=== PATIENT | female | born 1940 | race Caucasian/White ===

== ENCOUNTER 2017-08-24 19:35 | Emergency (ER) | payer OTHER ==
[~2017-08-24] VITALS: Ht 157.5 cm; Wt 102.1 kg
[~2017-08-24 19:35] MED LIST: ACET500 PO; ASPI81CH PO; BENTYL10 MG PO; CARV6.25 PO; DIAZ5 PO; DOCU100 PO; DONE5 PO; GABA300 PO; Hair, Skin & N1 EACH PO; Keflex500 MG PO; LOSA50 PO; LOVA40; MELO7.5 PO; OXYB5 PO; Prilosec Otc20 MG; VENL25 PO
[2017-08-24] MEDS ORDERED: MELO7.5 PO (19:45)
[2017-08-24 20:23] LABS: Base Excess Venous -4.1 mmol/L; Bicarbonate Venous 21.7 mmol/L (24.0-30.0); PCO2 Venous 33.3 mmHg (38-42); PO2 Venous 173 mmHg (38-42)
[2017-08-24 20:54] LABS: Alanine Aminotransfer (ALT/SGP 19 U/L (12-78); Albumin, Blood 3.5 g/dL (3.4-5.0); Albumin/Globulin Ratio 1.1 (0.8-1.8); Alk Phos 92 U/L (50-136); Anion Gap 10 mmol/L (6-16); Aspartate Aminotrans (AST/SGOT 21 U/L (12-37); Bilirubin, Total 0.3 mg/dL (0.1-1.0); Blood Urea Nitrogen 19 mg/dL (8-24); Bun/Creatinine Ratio 17.1 (12.0-20.0); CO2, Blood 22 mmol/L (21-32); Calcium, Blood 8.4 mg/dL (8.5-10.1); Chloride, Blood 109 mmol/L (98-108); Creatinine, Blood 1.11 mg/dL (0.40-1.00); Globulin, Blood 3.1 g/dL (2.2-4.0); Glomerular Filtration Rate 51 (60-); Glucose, Blood 158 mg/dL (70-99); Potassium, Blood 3.7 mmol/L (3.5-5.5); Sodium, Blood 141 mmol/L (136-145); Total Protein, Blood 6.6 g/dL (6.4-8.2); Troponin I <0.015 ng/mL (0.000-0.040)
[2017-08-24 21:45] LABS: BASOPHILS ABSOLUTE AUTO 0.06 K/mm3 (0.00-0.23); BASOPHILS PERCENT AUTO 1 % (0-2); EOSINOPHILS ABSOLUTE AUTO 0.11 K/mm3 (0.00-0.68); EOSINOPHILS PERCENT AUTO 1 % (0-6); Hematocrit 35.4 % (33.0-51.0); Hemoglobin 11.8 g/dL (11.5-16.0); IMMATURE GRAN ABSOLUTE AUTO 0.03 K/mm3 (0.00-0.10); IMMATURE GRAN PERCENT AUTO 0 % (0-1); LYMPHOCYTES ABSOLUTE AUTO 1.43 K/mm3 (0.84-5.20); LYMPHOCYTES PERCENT AUTO 17 % (21-46); MONOCYTES ABSOLUTE AUTO 0.67 K/mm3 (0.16-1.47); MONOCYTES PERCENT AUTO 8 % (4-13); Mean Corpuscular HGB 31.6 pg (26.0-34.0); Mean Corpuscular HGB Conc 33.3 g/dL (31.5-36.5); Mean Corpuscular Volume 95 fL (80-100); Mean Platelet Volume 9.5 fL (9.1-12.4); NEUTROPHILS ABSOLUTE AUTO 6.31 K/mm3 (1.96-9.15); NEUTROPHILS PERCENT AUTO 73 % (41-73); Platelet Count 186 K/mm3 (150-400); RDW Coefficient Variation 13.1 % (11.7-14.2); RDW Standard Deviation 45.4 fL (35.1-46.3); Red Blood Cell Count 3.74 M/mm3 (3.80-5.20); White Blood Cell Count 8.61 K/mm3 (4.00-11.30)
[2017-08-24] MEDS ORDERED: Zofran8 MG PO (22:07)
[2017-08-24 22:10] LABS: International Normalized Ratio 1.05; Prothrombin Time Results 10.8 Sec (9.7-11.5)
== END 2017-08-24 22:29 | disposition home or self-care (01) ==
LOC: ER 19:35
PROVIDERS: Emergency Medicine
DX: R11.10 Vomiting, unspecified (principal); I48.91 Unspecified atrial fibrillation; I25.10 Atherosclerotic heart disease of native coronary artery without angina pectoris; I25.2 Old myocardial infarction; E11.9 Type 2 diabetes mellitus without complications; I10 Essential (primary) hypertension; E78.5 Hyperlipidemia, unspecified; J45.909 Unspecified asthma, uncomplicated; Z88.5 Allergy status to narcotic agent; Z88.1 Allergy status to other antibiotic agents; Z79.899 Other long term (current) drug therapy; Z79.82 Long term (current) use of aspirin
CPT/HCPCS: 36415; 71046; 80053; 82803; 83690; 83880; 84443; 84484; 85025; 85610; 93005; 93010; 96361; 96374; 99284-25; J2405; J7030

== ENCOUNTER → 2018-02-25 | Outpatient (CLI) | payer OTHER ==
[~2018-02-25] MED LIST changes: +Zofran8 MG PO
== END | disposition home or self-care (01) ==
LOC: LAB SHORT 15:29 → LAB EV 15:29
DX: M62.81 Muscle weakness (generalized) (principal); R82.998 Other abnormal findings in urine
CPT/HCPCS: 87077; 87086; 87186

== ENCOUNTER → 2018-02-25 | Outpatient (CLI) | payer OTHER ==
[2018-02-25 14:30] LABS: BASOPHILS ABSOLUTE AUTO 0.05 K/mm3 (0.00-0.23); BASOPHILS PERCENT AUTO 1 % (0-2); EOSINOPHILS ABSOLUTE AUTO 0.19 K/mm3 (0.00-0.68); EOSINOPHILS PERCENT AUTO 2 % (0-6); Hematocrit 34.9 % (33.0-51.0); Hemoglobin 11.7 g/dL (11.5-16.0); IMMATURE GRAN ABSOLUTE AUTO 0.05 K/mm3 (0.00-0.10); IMMATURE GRAN PERCENT AUTO 1 % (0-1); LYMPHOCYTES ABSOLUTE AUTO 1.75 K/mm3 (0.84-5.20); LYMPHOCYTES PERCENT AUTO 18 % (21-46); MONOCYTES ABSOLUTE AUTO 0.94 K/mm3 (0.16-1.47); MONOCYTES PERCENT AUTO 10 % (4-13); Mean Corpuscular HGB Conc 33.5 g/dL (31.5-36.5); Mean Corpuscular Volume 93 fL (80-100); Mean Platelet Volume 9.6 fL (9.1-12.4); NEUTROPHILS ABSOLUTE AUTO 6.75 K/mm3 (1.96-9.15); NEUTROPHILS PERCENT AUTO 69 % (41-73); Platelet Count 269 K/mm3 (150-400); RDW Coefficient Variation 12.9 % (11.7-14.2); RDW Standard Deviation 43.7 fL (35.1-46.3); Red Blood Cell Count 3.77 M/mm3 (3.80-5.20); White Blood Cell Count 9.73 K/mm3 (4.00-11.30)
[2018-02-25 14:40] LABS: Alanine Aminotransfer (ALT/SGP 19 U/L (12-78); Albumin, Blood 3.3 g/dL (3.4-5.0); Albumin/Globulin Ratio 0.8 (0.8-1.8); Alk Phos 106 U/L (40-126); Anion Gap 10 mmol/L (6-16); Aspartate Aminotrans (AST/SGOT 15 U/L (12-37); Bilirubin, Total 0.4 mg/dL (0.1-1.0); Blood Urea Nitrogen 14 mg/dL (8-24); Bun/Creatinine Ratio 17.7 (12.0-20.0); CO2, Blood 26 mmol/L (21-32); Calcium, Blood 9.2 mg/dL (8.5-10.1); Chloride, Blood 101 mmol/L (98-108); Creatinine, Blood 0.79 mg/dL (0.40-1.00); Globulin, Blood 4.1 g/dL (2.2-4.0); Glomerular Filtration Rate >60 (60-); Glucose, Blood 160 mg/dL (70-99); Potassium, Blood 3.8 mmol/L (3.5-5.5); Sodium, Blood 137 mmol/L (136-145); Total Protein, Blood 7.4 g/dL (6.4-8.2)
== END | disposition home or self-care (01) ==
LOC: LAB EV 14:24 → LAB SHORT 14:24
PROVIDERS: Internal Medicine
DX: M25.561 Pain in right knee (principal); M62.81 Muscle weakness (generalized); R60.0 Localized edema
CPT/HCPCS: 80053; 85025; 85379; 85651

== ENCOUNTER 2018-08-09 16:30 | Emergency (ER) | payer OTHER ==
[~2018-08-09] VITALS: Ht 157.5 cm; Wt 102.1 kg
[2018-08-09 17:54] LABS: BASOPHILS ABSOLUTE AUTO 0.05 K/mm3 (0.00-0.23); BASOPHILS PERCENT AUTO 1 % (0-2); EOSINOPHILS PERCENT AUTO 3 % (0-6); Hematocrit 35.8 % (33.0-51.0); Hemoglobin 11.6 g/dL (11.5-16.0); IMMATURE GRAN ABSOLUTE AUTO 0.02 K/mm3 (0.00-0.10); IMMATURE GRAN PERCENT AUTO 0 % (0-1); LYMPHOCYTES ABSOLUTE AUTO 2.02 K/mm3 (0.84-5.20); LYMPHOCYTES PERCENT AUTO 33 % (21-46); MONOCYTES ABSOLUTE AUTO 0.51 K/mm3 (0.16-1.47); MONOCYTES PERCENT AUTO 8 % (4-13); Mean Corpuscular HGB 30.9 pg (26.0-34.0); Mean Corpuscular HGB Conc 32.4 g/dL (31.5-36.5); Mean Corpuscular Volume 96 fL (80-100); Mean Platelet Volume 9.4 fL (9.1-12.4); NEUTROPHILS PERCENT AUTO 54 % (41-73); Platelet Count 194 K/mm3 (150-400); RDW Standard Deviation 45.6 fL (35.1-46.3); Red Blood Cell Count 3.75 M/mm3 (3.80-5.20)
[2018-08-09 18:11] LABS: Alanine Aminotransfer (ALT/SGP 21 U/L (12-78); Albumin, Blood 3.7 g/dL (3.4-5.0); Albumin/Globulin Ratio 1.1 (0.8-1.8); Alk Phos 104 U/L (50-136); Anion Gap 4 mmol/L (6-16); Aspartate Aminotrans (AST/SGOT 16 U/L (12-37); Bilirubin, Total 0.3 mg/dL (0.1-1.0); Blood Urea Nitrogen 17 mg/dL (8-24); Bun/Creatinine Ratio 25.3 (12.0-20.0); CO2, Blood 30 mmol/L (21-32); Calcium, Blood 9.2 mg/dL (8.5-10.1); Chloride, Blood 106 mmol/L (98-108); Creatinine, Blood 0.67 mg/dL (0.40-1.00); Globulin, Blood 3.4 g/dL (2.2-4.0); Glomerular Filtration Rate >60 (60-); Glucose, Blood 84 mg/dL (70-99); Potassium, Blood 4.2 mmol/L (3.5-5.5); Sodium, Blood 140 mmol/L (136-145); Total Protein, Blood 7.1 g/dL (6.4-8.2)
[2018-08-09 18:19] LABS: Source, Urine Clean Catch
[2018-08-09 18:22] LABS: Bilirubin, Urine Neg (Neg); Blood, Urine 1+ (Neg); Glucose Qualitative, Urine Neg (Neg); Ketones, Urine Neg (Neg); Leukocyte Esterase, Urine 3+ (Neg); Nitrite, Urine Neg (Neg); Protein, Urine Neg (Neg); Urobilinogen, Urine NORM (Normal)
[2018-08-09 18:28] LABS: Appearance, Urine Hazy (Clear); Color, Urine Yellow (P-Yellow)
[2018-08-09 18:31] LABS: Bacteria Many /hpf; Red Blood Cells, Urine Rare /hpf (0-2); White Blood Cells, Urine 50-100 /hpf (0-5)
[2018-08-09 18:32] LABS: Squamous Epithelial Cells Few /hpf (Few)
[2018-08-09] MEDS ORDERED: Cipro500 MG PO (18:51)
== END 2018-08-09 19:10 | disposition home or self-care (01) ==
LOC: ER 16:30
PROVIDERS: Physician Assistant
DX: S09.90XA Unspecified injury of head, initial encounter (principal); R42 Dizziness and giddiness; N39.0 Urinary tract infection, site not specified; W19.XXXA Unspecified fall, initial encounter; I10 Essential (primary) hypertension; J45.909 Unspecified asthma, uncomplicated; E78.5 Hyperlipidemia, unspecified; I25.2 Old myocardial infarction
CPT/HCPCS: 36415; 70450; 71046; 73030; 80053; 81001; 85025; 87077; 87086; 87186; 93005; 93010; 99284-25

== ENCOUNTER → 2019-01-01 | Outpatient (CLI) | payer OTHER ==
[~2019-01-01] MED LIST changes: +Cipro500 MG PO
== END | disposition home or self-care (01) ==
LOC: LAB SHORT 13:44 → LAB EV 13:44
DX: L08.9 Local infection of the skin and subcutaneous tissue, unspecified (principal)
CPT/HCPCS: 87070; 87075; 87205

== ENCOUNTER → 2019-04-14 | Outpatient (CLI) | payer OTHER ==
[2019-04-14 11:46] LABS: BASOPHILS ABSOLUTE AUTO 0.07 K/mm3 (0.00-0.23); BASOPHILS PERCENT AUTO 1 % (0-2); EOSINOPHILS ABSOLUTE AUTO 0.28 K/mm3 (0.00-0.68); EOSINOPHILS PERCENT AUTO 4 % (0-6); Hematocrit 38.8 % (33.0-51.0); IMMATURE GRAN ABSOLUTE AUTO 0.04 K/mm3 (0.00-0.10); IMMATURE GRAN PERCENT AUTO 1 % (0-1); LYMPHOCYTES ABSOLUTE AUTO 1.45 K/mm3 (0.84-5.20); LYMPHOCYTES PERCENT AUTO 19 % (21-46); MONOCYTES ABSOLUTE AUTO 1.03 K/mm3 (0.16-1.47); MONOCYTES PERCENT AUTO 13 % (4-13); Mean Corpuscular HGB 31.4 pg (26.0-34.0); Mean Corpuscular HGB Conc 33.5 g/dL (31.5-36.5); Mean Corpuscular Volume 94 fL (80-100); Mean Platelet Volume 9.5 fL (9.1-12.4); NEUTROPHILS ABSOLUTE AUTO 4.86 K/mm3 (1.96-9.15); NEUTROPHILS PERCENT AUTO 63 % (41-73); Platelet Count 221 K/mm3 (150-400); RDW Coefficient Variation 12.9 % (11.7-14.2); Red Blood Cell Count 4.14 M/mm3 (3.80-5.20); White Blood Cell Count 7.73 K/mm3 (4.00-11.30)
[2019-04-14 11:55] LABS: Anion Gap 11 mmol/L (6-16); Blood Urea Nitrogen 17 mg/dL (8-24); Bun/Creatinine Ratio 18.9 (12.0-20.0); CO2, Blood 23 mmol/L (21-32); Calcium, Blood 9.1 mg/dL (8.5-10.1); Chloride, Blood 102 mmol/L (98-108); Glomerular Filtration Rate >60 (60-); Glucose, Blood 163 mg/dL (70-99); Potassium, Blood 3.7 mmol/L (3.5-5.5); Sodium, Blood 136 mmol/L (136-145)
[2019-04-14 11:58] LABS: Troponin I <0.017 ng/mL (0.000-0.040)
== END | disposition home or self-care (01) ==
LOC: LAB SHORT 11:37 → LAB EV 11:37
PROVIDERS: Physician Assistant Surgical
DX: R07.9 Chest pain, unspecified (principal)
CPT/HCPCS: 80048; 83880; 84484; 85025

== ENCOUNTER 2021-07-14 20:32 | Observation (INO) | payer OTHER ==
[~2021-07-14] VITALS: Ht 157.5 cm; Wt 101.0 kg
[~2021-07-14 20:32] MED LIST changes: +OMEP20ER PO; -Prilosec Otc20 MG
[2021-07-14 23:37] LABS: BASOPHILS ABSOLUTE AUTO 0.08 K/mm3 (0.00-0.23); BASOPHILS PERCENT AUTO 1 % (0-2); EOSINOPHILS ABSOLUTE AUTO 0.06 K/mm3 (0.00-0.68); EOSINOPHILS PERCENT AUTO 1 % (0-6); Hematocrit 39.1 % (33.0-51.0); Hemoglobin 13.2 g/dL (11.5-16.0); IMMATURE GRAN ABSOLUTE AUTO 0.04 K/mm3 (0.00-0.10); IMMATURE GRAN PERCENT AUTO 0 % (0-1); LYMPHOCYTES PERCENT AUTO 15 % (21-46); MONOCYTES ABSOLUTE AUTO 1.17 K/mm3 (0.16-1.47); MONOCYTES PERCENT AUTO 13 % (4-13); Mean Corpuscular HGB 31.5 pg (26.0-34.0); Mean Corpuscular HGB Conc 33.8 g/dL (31.5-36.5); Mean Corpuscular Volume 93 fL (80-100); Mean Platelet Volume 9.3 fL (9.1-12.4); NEUTROPHILS ABSOLUTE AUTO 6.35 K/mm3 (1.96-9.15); NEUTROPHILS PERCENT AUTO 70 % (41-73); Platelet Count 213 K/mm3 (150-400); RDW Standard Deviation 44.8 fL (35.1-46.3); Red Blood Cell Count 4.19 M/mm3 (3.80-5.20)
[2021-07-14 23:57] LABS: Albumin, Blood 3.6 g/dL (3.4-5.0); Albumin/Globulin Ratio 0.9 (0.8-1.8); Bilirubin, Total 0.5 mg/dL (0.1-1.0); Bun/Creatinine Ratio 25.4 (12.0-20.0); Creatinine, Blood 0.67 mg/dL (0.40-1.00); Globulin, Blood 4.2 g/dL (2.2-4.0); Potassium, Blood 3.9 mmol/L (3.5-5.5); Total Protein, Blood 7.8 g/dL (6.4-8.2)
[2021-07-15] MEDS ORDERED: POTA10T PO (04:00)
[2021-07-15] MEDS ORDERED: FURO40 PO (04:01)
[2021-07-15] MEDS ORDERED: MEMA10 PO (04:01)
[2021-07-15] MEDS ORDERED: PROAIR DIGIHAL90 MCG INH (04:04)
[2021-07-15] MEDS ORDERED: CHOLESTYRAMI239.4 G1 PO (04:05)
[2021-07-15] MEDS ORDERED: QVAR REDIHALE10.6 G3 INH (04:06)
[2021-07-15] MEDS ORDERED: MYRBETRIQ25 MG PO (04:12)
[2021-07-15] MEDS ORDERED: THERA-D2000 UNIT PO (04:14)
[2021-07-15] MEDS ORDERED: Acerola C500 MG PO (04:15)
[2021-07-15 04:21] LABS: BASOPHILS ABSOLUTE AUTO 0.06 K/mm3 (0.00-0.23); BASOPHILS PERCENT AUTO 1 % (0-2); EOSINOPHILS PERCENT AUTO 1 % (0-6); Hematocrit 38.7 % (33.0-51.0); Hemoglobin 12.8 g/dL (11.5-16.0); IMMATURE GRAN ABSOLUTE AUTO 0.04 K/mm3 (0.00-0.10); IMMATURE GRAN PERCENT AUTO 0 % (0-1); LYMPHOCYTES ABSOLUTE AUTO 0.91 K/mm3 (0.84-5.20); LYMPHOCYTES PERCENT AUTO 10 % (21-46); MONOCYTES ABSOLUTE AUTO 0.75 K/mm3 (0.16-1.47); MONOCYTES PERCENT AUTO 8 % (4-13); Mean Corpuscular HGB 31.1 pg (26.0-34.0); Mean Corpuscular HGB Conc 33.1 g/dL (31.5-36.5); Mean Corpuscular Volume 94 fL (80-100); Mean Platelet Volume 9.3 fL (9.1-12.4); NEUTROPHILS ABSOLUTE AUTO 7.41 K/mm3 (1.96-9.15); NEUTROPHILS PERCENT AUTO 80 % (41-73); Platelet Count 219 K/mm3 (150-400); RDW Coefficient Variation 13.2 % (11.7-14.2); RDW Standard Deviation 45.3 fL (35.1-46.3); Red Blood Cell Count 4.11 M/mm3 (3.80-5.20); White Blood Cell Count 9.27 K/mm3 (4.00-11.30)
[2021-07-15 04:39] LABS: Albumin, Blood 3.6 g/dL (3.4-5.0); Albumin/Globulin Ratio 0.9 (0.8-1.8); Bilirubin, Total 0.5 mg/dL (0.1-1.0); Bun/Creatinine Ratio 25.1 (12.0-20.0); Calcium, Blood 9.4 mg/dL (8.5-10.1); Creatinine, Blood 0.64 mg/dL (0.40-1.00); Globulin, Blood 4.1 g/dL (2.2-4.0); Total Protein, Blood 7.7 g/dL (6.4-8.2)
--- NOTE | 2021-07-15 06:37 | NUR ---
SHIFT SUMMARY: PATIENT ADMITTED FROM ED WITH COVID, DYSPNEA, INCREASED WEAKNESS AND CONFUSION PER DAUGHTER. PATIENT IS PLEASANT ABLE TO ANSWER ALL ORIENTATION QUESTIONS AND PARTICIPATE IN ADMISSION PROCESS TREVON. REQUIRING 2L VIA NC TO MAINTAIN SAT > 92%. TELE = AFIB. TRACE EDEMA AND REDENSS TO BLE. PATIENT ENDORSES CHRONIC PAIN HOWEVER DENIES NEED FOR MEDICATION AND REQUEST TO REST. PLAN OF CARE EXPLAINED TO PATIENT AND DAUGHTER ALL QUESTIONS AND CONCERNS ADDRESSED. COMPLIANT WITH MEDICATION ADMINISTRATION.
--- NOTE | 2021-07-15 17:26 | NUR ---
PT IS A/OX3, PLEASANT AND COOPERATIVE. THE PT IS UP WITH MINIMAL ASSIST. THE PT WAS UP IN THE CHAIR FOR ALL MEALS. THE PT IS ON O2 VIA NC AT 1L/MIN AT THIS TIME, TITRATED DOWN FROM 3L/MIN O2 SATS > 92% AT REST. PT WAS MEDICATED FOR PAIN X1 THIS AM WITH TYLENOL PER HER REQUEST. VS WNL. CONTINUOS BIOX ON. CALL LIGHT IN REACH. THE PT IS UP IN THE CHAIR AT THIS TIME
--- NOTE | 2021-07-16 04:07 | NUR ---
SHIFT SUMMARY NO ACUTE CHANGES. PT CONT TO DENY SOB. ON 1L VIA NC TO KEEP SATS >90%. CONT BIOX IN PLACE. UP WITH 1 ASSIST TO BSC.
[2021-07-16] MEDS ORDERED: AZIT500 PO (09:55)
[2021-07-16] MEDS ORDERED: METO25ER PO (09:56)
--- NOTE | 2021-07-16 14:05 | NUR ---
DISCHARGE INSTRUCTIONS, FOLLOW UP, AND MEDICATIONS GIVEN TO PATIENT. PATIENT VOICED COMPLETE UNDERSTANDING AND HAS NO QUESTIONS AT THIS TIME. IV REMOVED WITH CATHETER TIP INTACT. FAMILY TO BRING CLOTHES FOR PT. WILL CONTINUE TO MONITOR UNTIL PT LEAVES
== END 2021-07-16 15:51 | disposition home health service (06) ==
LOC: ER 20:32 → MEDS 20:33 → ER 07-15 02:53 → MEDS 07-15 02:53
PROVIDERS: Physician Assistant; Student in an Organized Health Care Education/Training Program; ADMIT Internal Medicine
DX: U07.1 COVID-19 (principal); J96.01 Acute respiratory failure with hypoxia; J18.9 Pneumonia, unspecified organism; J45.909 Unspecified asthma, uncomplicated; E78.5 Hyperlipidemia, unspecified; I25.10 Atherosclerotic heart disease of native coronary artery without angina pectoris; I11.0 Hypertensive heart disease with heart failure; I44.7 Left bundle-branch block, unspecified; I25.2 Old myocardial infarction; I50.9 Heart failure, unspecified; I48.20 Chronic atrial fibrillation, unspecified; F03.90 Unspecified dementia, unspecified severity, without behavioral disturbance, psychotic disturbance, mood disturbance, and anxiety; Z66 Do not resuscitate; Z95.5 Presence of coronary angioplasty implant and graft; Z90.49 Acquired absence of other specified parts of digestive tract; Z88.5 Allergy status to narcotic agent; Z88.1 Allergy status to other antibiotic agents; Z79.82 Long term (current) use of aspirin
CPT/HCPCS: 36415; 71045; 80053; 83605; 83880; 84145; 84484; 85025; 92526; 92610; 93005; 93010; 94762; 96374; 96375; 97162; 97530; 99285-25; A9270; J0248; J0696; J1100; J1650; J1940; J7050

== ENCOUNTER 2021-09-30 05:33 | Inpatient (IN) | payer OTHER ==
[~2021-09-30] VITALS: Ht 160 cm; Wt 95.2 kg
[~2021-09-30 05:33] MED LIST changes: +AZIT500 PO; +Acerola C500 MG PO; +CHOLESTYRAMI239.4 G1 PO; +FURO40 PO; +MEMA10 PO; +METO25ER PO; +MYRBETRIQ25 MG PO; +POTA10T PO; +PROAIR DIGIHAL90 MCG INH; +QVAR REDIHALE10.6 G3 INH; +THERA-D2000 UNIT PO
[2021-09-30 09:00] LABS: International Normalized Ratio 1.05
[2021-09-30 09:22] LABS: BASOPHILS ABSOLUTE AUTO 0.09 K/mm3 (0.00-0.23); BASOPHILS PERCENT AUTO 1 % (0-2); EOSINOPHILS ABSOLUTE AUTO 0.14 K/mm3 (0.00-0.68); EOSINOPHILS PERCENT AUTO 1 % (0-6); Hematocrit 35.3 % (33.0-51.0); Hemoglobin 11.2 g/dL (11.5-16.0); IMMATURE GRAN ABSOLUTE AUTO 0.08 K/mm3 (0.00-0.10); IMMATURE GRAN PERCENT AUTO 1 % (0-1); LYMPHOCYTES ABSOLUTE AUTO 1.86 K/mm3 (0.84-5.20); LYMPHOCYTES PERCENT AUTO 13 % (21-46); MONOCYTES PERCENT AUTO 7 % (4-13); Mean Corpuscular HGB 30.5 pg (26.0-34.0); Mean Corpuscular HGB Conc 31.7 g/dL (31.5-36.5); Mean Corpuscular Volume 96 fL (80-100); NEUTROPHILS PERCENT AUTO 78 % (41-73); Platelet Count 242 K/mm3 (150-400); RDW Coefficient Variation 13.7 % (11.7-14.2); RDW Standard Deviation 48.7 fL (35.1-46.3); Red Blood Cell Count 3.67 M/mm3 (3.80-5.20); White Blood Cell Count 14.27 K/mm3 (4.00-11.30)
[2021-09-30 09:22] LABS: Influenza A, PCR NEGATIVE (NEGATIVE); Influenza B, PCR NEGATIVE (NEGATIVE); Resp Syncytial Virus, PCR NEGATIVE (NEGATIVE); SARS-Cov-2 (COVID-19) PCR, MMC NEGATIVE (NEGATIVE)
[2021-09-30 09:42] LABS: Bun/Creatinine Ratio 30.5 (12.0-20.0); Calcium, Blood 9.3 mg/dL (8.5-10.1); Creatinine, Blood 0.62 mg/dL (0.40-1.00); Potassium, Blood 4.2 mmol/L (3.5-5.5)
[2021-09-30 11:15] LABS: Source, Urine Foley catheter
[2021-09-30 11:19] LABS: Bilirubin, Urine Neg (Neg); Blood, Urine 1+ (Neg); Glucose Qualitative, Urine Neg (Neg); Ketones, Urine Neg (Neg); Leukocyte Esterase, Urine 2+ (Neg); Nitrite, Urine Neg (Neg); Protein, Urine Neg (Neg); Urobilinogen, Urine NORM (Normal)
[2021-09-30 11:40] LABS: Appearance, Urine Hazy (Clear); Bacteria Mod /hpf; Color, Urine Yellow (P-Yellow); Squamous Epithelial Cells Rare /hpf (Few); White Blood Cells, Urine 25-50 /hpf (0-5)
[2021-09-30] MEDS ORDERED: Acetaminophen650 M1 PO (16:13)
--- NOTE | 2021-09-30 18:47 | NUR ---
SHIFT SUMMARY SINCE ARRIVAL TO UNIT AROUND 1500, PT HAS BEEN DROWSY BUT AWAKENS EASILY. PLEASANTLY CONFUSED. BED ALARM ON. TELE & DNR WRISTBAND PLACED. [address] TX IN [address] w/ GOOD RELIEF.
[2021-10-01 05:00] LABS: BASOPHILS ABSOLUTE AUTO 0.05 K/mm3 (0.00-0.23); BASOPHILS PERCENT AUTO 1 % (0-2); EOSINOPHILS ABSOLUTE AUTO 0.11 K/mm3 (0.00-0.68); EOSINOPHILS PERCENT AUTO 1 % (0-6); Hemoglobin 10.6 g/dL (11.5-16.0); IMMATURE GRAN ABSOLUTE AUTO 0.05 K/mm3 (0.00-0.10); IMMATURE GRAN PERCENT AUTO 1 % (0-1); LYMPHOCYTES ABSOLUTE AUTO 1.34 K/mm3 (0.84-5.20); LYMPHOCYTES PERCENT AUTO 14 % (21-46); MONOCYTES ABSOLUTE AUTO 1.03 K/mm3 (0.16-1.47); MONOCYTES PERCENT AUTO 11 % (4-13); Mean Corpuscular HGB 30.7 pg (26.0-34.0); Mean Corpuscular HGB Conc 32.1 g/dL (31.5-36.5); Mean Corpuscular Volume 96 fL (80-100); Mean Platelet Volume 9.3 fL (9.1-12.4); NEUTROPHILS ABSOLUTE AUTO 7.27 K/mm3 (1.96-9.15); NEUTROPHILS PERCENT AUTO 74 % (41-73); Platelet Count 221 K/mm3 (150-400); RDW Coefficient Variation 13.7 % (11.7-14.2); Red Blood Cell Count 3.45 M/mm3 (3.80-5.20); White Blood Cell Count 9.85 K/mm3 (4.00-11.30)
--- NOTE | 2021-10-01 05:11 | NUR ---
SHIFT SUMMARY A/O X3- BEDREST THROUGHOUT THIS SHIFT. NPO SINCE MIDNIGHT. VITAL SIGNS STABLE. PAIN MANAGED W/ PO AND IV PAIN MEDICATIONS. R LEG REMAINS IN TRACTION. MCLEOD DRAINING TO GRAVITY. NO N/V REPORTED. PLEASANT AND COOPERATIVE W/ CARE. CALL LIGHT IN REACH, WILL CONTINUE TO MONITOR AND REPORT TO ONCOMING RN.
[2021-10-01 05:28] LABS: Albumin, Blood 2.8 g/dL (3.4-5.0); Albumin/Globulin Ratio 0.7 (0.8-1.8); Bilirubin, Total 0.7 mg/dL (0.1-1.0); Bun/Creatinine Ratio 36.8 (12.0-20.0); Calcium, Blood 8.5 mg/dL (8.5-10.1); Creatinine, Blood 0.27 mg/dL (0.40-1.00); Globulin, Blood 3.8 g/dL (2.2-4.0); Potassium, Blood 4.2 mmol/L (3.5-5.5); Total Protein, Blood 6.6 g/dL (6.4-8.2)
--- NOTE | 2021-10-01 09:54 | NUR ---
Spiritual Care Pt. request. Pt. is awake in bed and welcomes my visit. Many family members are present. Pt. verbalized being inactive in her [employer] licha for several years. Daughter is present and rapport is established. Pt. displays evidence on engagement and awareness. Prayed with Pt. and daughter. Pt. and daughter verbalized gratitude for the spirtitual care visit.
--- NOTE | 2021-10-01 13:21 | NUR ---
PT TO DAY SURGERY VIA HOSPITAL BED
--- NOTE | 2021-10-01 13:38 | NUR ---
THE PATIENT WAS BROUGHT TO DAY SURGERY FOR HER PROCEDURE.
--- NOTE | 2021-10-01 16:01 | NUR ---
10/01/21 1601 Andres Granger PT ARRIVED TO OR WITH MCLEOD CATHETER IN PLACE, DRAINING DARK YELLOW URINE.EMPTIED 900ML @ START OF CASE.
--- NOTE | 2021-10-01 23:35 | NUR ---
PT ARRIVED BACK TO THE FLOOR AT APPROX 1915, CURRENTLY ON 7L OXYMIZER TO KEEP SATS ABOVE 90%. PT IS SLEEPING BUT AROUSABLE AND RESPONDS TO VERBAL STIMULI. FAMILY AT BEDSIDE. VITALS TAKEN. MCLEOD DRAINING TO GRAVITY. WILL CONTINUE TO MONITOR.
--- NOTE | 2021-10-02 05:42 | NUR ---
SHIFT SUMMARY A/O TO SELF AND OTHERS AT TIMES. BEDREST THROUGHOUT SHIFT. POD1 R FEMUR PINNING-AQUACELS X3 C/D/I. VITAL SIGNS STABLE. PAIN MANAGED W/ IV PAIN MEDICATIONS, DURING PROCEDURE. SINCE ARRIVAL TO THE FLOOR PT 02 SATURATIONS REMAINES ABOVE 90% W/ 3.5L. WILL CONTINUE TO MONITOR AND REPORT TO ONCOMING RN.
[2021-10-02 08:24] LABS: BASOPHILS ABSOLUTE AUTO 0.04 K/mm3 (0.00-0.23); BASOPHILS PERCENT AUTO 0 % (0-2); EOSINOPHILS ABSOLUTE AUTO 0.01 K/mm3 (0.00-0.68); EOSINOPHILS PERCENT AUTO 0 % (0-6); Hematocrit 28.5 % (33.0-51.0); Hemoglobin 8.9 g/dL (11.5-16.0); IMMATURE GRAN ABSOLUTE AUTO 0.07 K/mm3 (0.00-0.10); IMMATURE GRAN PERCENT AUTO 1 % (0-1); LYMPHOCYTES ABSOLUTE AUTO 1.36 K/mm3 (0.84-5.20); LYMPHOCYTES PERCENT AUTO 11 % (21-46); MONOCYTES ABSOLUTE AUTO 1.64 K/mm3 (0.16-1.47); MONOCYTES PERCENT AUTO 13 % (4-13); Mean Corpuscular HGB 30.4 pg (26.0-34.0); Mean Corpuscular HGB Conc 31.2 g/dL (31.5-36.5); Mean Corpuscular Volume 97 fL (80-100); Mean Platelet Volume 9.7 fL (9.1-12.4); NEUTROPHILS PERCENT AUTO 76 % (41-73); Platelet Count 195 K/mm3 (150-400); RDW Coefficient Variation 13.5 % (11.7-14.2); RDW Standard Deviation 48.6 fL (35.1-46.3); Red Blood Cell Count 2.93 M/mm3 (3.80-5.20); White Blood Cell Count 12.82 K/mm3 (4.00-11.30)
[2021-10-02 08:26] LABS: Albumin, Blood 2.4 g/dL (3.4-5.0); Albumin/Globulin Ratio 0.7 (0.8-1.8); Bilirubin, Total 0.7 mg/dL (0.1-1.0); Calcium, Blood 8.4 mg/dL (8.5-10.1); Creatinine, Blood 0.55 mg/dL (0.40-1.00); Globulin, Blood 3.6 g/dL (2.2-4.0); Potassium, Blood 4.3 mmol/L (3.5-5.5)
--- NOTE | 2021-10-03 05:15 | NUR ---
SHIFT SUMMARY A/O X3- PLEASANTLY CONFUSED. BEDREST THROUGHOUT THE NIGHT. VITAL SIGNS STABLE. POD1 OPEN R FEMUR FIXATION, [address] C/D/I. NO PAIN REPORTED THROUGHOUT SHIFT. REMAINS ON OXYGEN TO MAINTAIN SATURATIONS. MCLEOD TO GRAVITY. TOLERATING PO INTAKE AND PASSING STOOL. WILL CONTINUE TO MONITOR AND REPORT TO ONCOMING RN.
[2021-10-03 10:13] LABS: SARS-Cov-2 (COVID-19) PCR, MMC NEGATIVE (NEGATIVE)
--- NOTE | 2021-10-03 11:21 | NUR ---
REPORT PHONED TO RN AT [facility]
--- NOTE | 2021-10-03 11:45 | NUR ---
PT AWAKENED FOR TRANSFER TO [facility], CONFUSED WHEN AWAKENED. PT DOES NOT KNOW WHERE SHE IS OR THAT SHE BROKE HER LEG. PT COOPERATIVE. MAX ASSIST TO WHEELCHAIR FOR TRANSPORT. [address] FAMILY WITH PT WHEN DISCHARGED. CONTACTED NICO AT [facility] TO UPDATE HIM OF PTS CONFUSION
== END 2021-10-03 11:53 | DRG 481 ==
LOC: ER 05:33 → SURS 09:59
PROVIDERS: Family Medicine; Orthopaedic Surgery; Student in an Organized Health Care Education/Training Program; ADMIT Family Medicine
PROC: 3E03329 Introduction of Other Anti-infective into Peripheral Vein, Percutaneous Approach (ICD-10-PCS; 2021-10-01)
PROC: 0QSB36Z Reposition Right Lower Femur with Intramedullary Internal Fixation Device, Percutaneous Approach (ICD-10-PCS; principal; 2021-10-01 13:00)
DX: M97.01XA Periprosthetic fracture around internal prosthetic right hip joint, initial encounter (principal); L03.116 Cellulitis of left lower limb; L97.929 Non-pressure chronic ulcer of unspecified part of left lower leg with unspecified severity; F03.90 Unspecified dementia, unspecified severity, without behavioral disturbance, psychotic disturbance, mood disturbance, and anxiety; I25.10 Atherosclerotic heart disease of native coronary artery without angina pectoris; M79.7 Fibromyalgia; E11.51 Type 2 diabetes mellitus with diabetic peripheral angiopathy without gangrene; Z88.5 Allergy status to narcotic agent; Z88.1 Allergy status to other antibiotic agents; W18.30XA Fall on same level, unspecified, initial encounter; Z20.822 Contact with and (suspected) exposure to COVID-19; Z86.73 Personal history of transient ischemic attack (TIA), and cerebral infarction without residual deficits; F41.9 Anxiety disorder, unspecified; J45.909 Unspecified asthma, uncomplicated; M54.59 Other low back pain; G89.29 Other chronic pain; M47.812 Spondylosis without myelopathy or radiculopathy, cervical region; K21.9 Gastro-esophageal reflux disease without esophagitis; E78.5 Hyperlipidemia, unspecified; I11.0 Hypertensive heart disease with heart failure; M15.9 Polyosteoarthritis, unspecified; G47.00 Insomnia, unspecified; E66.01 Morbid (severe) obesity due to excess calories; G43.909 Migraine, unspecified, not intractable, without status migrainosus; I48.0 Paroxysmal atrial fibrillation; R29.6 Repeated falls; E55.9 Vitamin D deficiency, unspecified; Z98.890 Other specified postprocedural states; Z66 Do not resuscitate; Z88.8 Allergy status to other drugs, medicaments and biological substances; Z79.899 Other long term (current) drug therapy; Z79.82 Long term (current) use of aspirin
CPT/HCPCS: 0241U; 29505; 36415; 51702; 73502; 73552; 73560-RT; 73700; 80048; 80053; 81001; 82947; 85025; 85610; 85730; 86140; 86850; 86900; 86901; 87077; 87086; 87186; 93005; 93010; 93971; 94640; 94664; 94760; 96374-59; 96375-59; 96376-59; 97110; 97162; 97166; 97530; 99285-25; A9270; C1713; C1769; J0171; J0696; J1100; J1170; J1650; J2370; J2405; J2704; J2795; J3010; J7030; J7120; U0004

== ENCOUNTER 2022-01-24 22:01 | Inpatient (IN) | payer OTHER ==
[~2022-01-24] VITALS: Ht 162.6 cm; Wt 95.4 kg
[~2022-01-24 22:01] MED LIST changes: +Acetaminophen650 M1 PO
[2022-01-24 23:07] LABS: BASOPHILS ABSOLUTE AUTO 0.04 K/mm3 (0.00-0.23); BASOPHILS PERCENT AUTO 0 % (0-2); EOSINOPHILS PERCENT AUTO 1 % (0-6); Hematocrit 46.1 % (33.0-51.0); Hemoglobin 14.9 g/dL (11.5-16.0); IMMATURE GRAN ABSOLUTE AUTO 0.07 K/mm3 (0.00-0.10); IMMATURE GRAN PERCENT AUTO 1 % (0-1); LYMPHOCYTES ABSOLUTE AUTO 1.06 K/mm3 (0.84-5.20); LYMPHOCYTES PERCENT AUTO 10 % (21-46); MONOCYTES ABSOLUTE AUTO 0.82 K/mm3 (0.16-1.47); MONOCYTES PERCENT AUTO 8 % (4-13); Mean Corpuscular HGB 28.4 pg (26.0-34.0); Mean Corpuscular HGB Conc 32.3 g/dL (31.5-36.5); Mean Corpuscular Volume 88 fL (80-100); Mean Platelet Volume 9.3 fL (9.1-12.4); NEUTROPHILS ABSOLUTE AUTO 8.39 K/mm3 (1.96-9.15); NEUTROPHILS PERCENT AUTO 80 % (41-73); Platelet Count 245 K/mm3 (150-400); RDW Coefficient Variation 16.3 % (11.7-14.2); Red Blood Cell Count 5.25 M/mm3 (3.80-5.20); White Blood Cell Count 10.48 K/mm3 (4.00-11.30)
[2022-01-24 23:19] LABS: Influenza A, PCR NEGATIVE (NEGATIVE); Influenza B, PCR NEGATIVE (NEGATIVE); SARS-Cov-2 (COVID-19) PCR, MMC NEGATIVE (NEGATIVE)
[2022-01-24 23:31] LABS: Albumin, Blood 3.8 g/dL (3.4-5.0); Albumin/Globulin Ratio 0.8 (0.8-1.8); Bilirubin, Total 0.5 mg/dL (0.1-1.0); Bun/Creatinine Ratio 29.6 (12.0-20.0); Calcium, Blood 9.2 mg/dL (8.5-10.1); Creatinine, Blood 0.64 mg/dL (0.40-1.00); Globulin, Blood 4.9 g/dL (2.2-4.0); Magnesium, Blood 1.9 mg/dL (1.6-2.4); Potassium, Blood 4.1 mmol/L (3.5-5.5); Total Protein, Blood 8.7 g/dL (6.4-8.2)
[2022-01-25 00:02] LABS: Resp Syncytial Virus, PCR POSITIVE (NEGATIVE)
--- NOTE | 2022-01-26 05:27 | NUR ---
SUMMARY: PATIENT ADMITTED OVERNIGHT FROM ER. ADMISSION AND MED REC COMPLETE. CALLED PATIENT DAUGHTER TO LET HER KNOW THE PATIENTS ROOM NUMBER AND TO GO OVER MED REC. GAVE PATIENT BED BATH. PATIENT 1XASSIST TO BEDSIDE COMMODE. ON 2L NC. PATIENT HAS INCREASED SOB WITH EXERTION. PATIENT BP AND HR ELEVATED IN 130S JUMPING TO 150S. NOTIFIED MD, RECEIVED ORDER FOR 1X DOSE CARDIZEM IV AND PRN LOPRESSOR. HR LOWERED AFTER FIRST DOSE OF CARDIZEM. PATIENT HAD SOME ST ELEVATION PER HEALTH ASSOCIATE. NOTIFED MD. RECIEVED 12 LEAD EKG. NOTFIED MD WITH RESULTS. GAVE PRN LOPRESSOR FOR HR NEEDED THROUGHOUT NIGHT.
[2022-01-26 06:23] LABS: BASOPHILS ABSOLUTE AUTO 0.05 K/mm3 (0.00-0.23); BASOPHILS PERCENT AUTO 0 % (0-2); EOSINOPHILS ABSOLUTE AUTO 0.01 K/mm3 (0.00-0.68); EOSINOPHILS PERCENT AUTO 0 % (0-6); Hematocrit 39.5 % (33.0-51.0); Hemoglobin 13.1 g/dL (11.5-16.0); IMMATURE GRAN ABSOLUTE AUTO 0.08 K/mm3 (0.00-0.10); IMMATURE GRAN PERCENT AUTO 1 % (0-1); LYMPHOCYTES PERCENT AUTO 12 % (21-46); MONOCYTES ABSOLUTE AUTO 1.37 K/mm3 (0.16-1.47); MONOCYTES PERCENT AUTO 10 % (4-13); Mean Corpuscular HGB 28.9 pg (26.0-34.0); Mean Corpuscular HGB Conc 33.2 g/dL (31.5-36.5); Mean Corpuscular Volume 87 fL (80-100); Mean Platelet Volume 9.3 fL (9.1-12.4); NEUTROPHILS ABSOLUTE AUTO 10.58 K/mm3 (1.96-9.15); NEUTROPHILS PERCENT AUTO 77 % (41-73); Platelet Count 215 K/mm3 (150-400); RDW Coefficient Variation 16.4 % (11.7-14.2); RDW Standard Deviation 51.9 fL (35.1-46.3); Red Blood Cell Count 4.53 M/mm3 (3.80-5.20); White Blood Cell Count 13.69 K/mm3 (4.00-11.30)
[2022-01-26 06:59] LABS: Albumin, Blood 3.3 g/dL (3.4-5.0); Albumin/Globulin Ratio 0.8 (0.8-1.8); Bilirubin, Total 0.3 mg/dL (0.1-1.0); Calcium, Blood 9.6 mg/dL (8.5-10.1); Creatinine, Blood 0.59 mg/dL (0.40-1.00); Potassium, Blood 4.1 mmol/L (3.5-5.5); Total Protein, Blood 7.3 g/dL (6.4-8.2)
--- NOTE | 2022-01-27 04:44 | NUR ---
SUMMARY: PATIENT DID WELL OVERNIGHT. STILL WEAK. 1 PERSON ASSIST TO BEDSIDE COMMODE WITH WALKER. ON 3L NC. NO ACUTE EVENTS. TELE MONITOR IN PLACE, A FIB OVERNIGHT RATE STABLE IN THE 90S. TYLENOL GIVEN FOR A HEADACHE. ISOLATION IN PLACE FOR RSV.
[2022-01-27 05:58] LABS: BASOPHILS ABSOLUTE AUTO 0.02 K/mm3 (0.00-0.23); BASOPHILS PERCENT AUTO 0 % (0-2); EOSINOPHILS PERCENT AUTO 0 % (0-6); IMMATURE GRAN ABSOLUTE AUTO 0.06 K/mm3 (0.00-0.10); IMMATURE GRAN PERCENT AUTO 1 % (0-1); LYMPHOCYTES ABSOLUTE AUTO 1.34 K/mm3 (0.84-5.20); LYMPHOCYTES PERCENT AUTO 15 % (21-46); MONOCYTES ABSOLUTE AUTO 0.76 K/mm3 (0.16-1.47); MONOCYTES PERCENT AUTO 8 % (4-13); Mean Corpuscular HGB Conc 33.3 g/dL (31.5-36.5); Mean Corpuscular Volume 87 fL (80-100); Mean Platelet Volume 9.3 fL (9.1-12.4); NEUTROPHILS PERCENT AUTO 76 % (41-73); Platelet Count 243 K/mm3 (150-400); RDW Coefficient Variation 16.4 % (11.7-14.2); RDW Standard Deviation 51.8 fL (35.1-46.3); Red Blood Cell Count 4.49 M/mm3 (3.80-5.20); White Blood Cell Count 9.08 K/mm3 (4.00-11.30)
--- NOTE | 2022-01-27 18:15 | NUR ---
SHIFT SUMMARY NO ACUTE CHANGES DURING SHIFT. PT ALERT AND ORIENTED, CALLS APPROPRIATELY. PT REMAINS ON 2L NC, SPO2 > 92%. SOB ON EXERTION, PT SBA TO BEDSIDE COMMODE. NO C/O PAIN. WILL CONTINUE TO MONITOR. CALL LIGHT WITHIN REACH.
--- NOTE | 2022-01-27 20:50 | NUR ---
THE PATIENT IS AN 81 YEAR-OLD FEMALE WITH A DIAGNOSIS OF RSV. A&OX4. PATIENT EFFECTIVELY COMMUNICATES NEEDS. CALL LIGHT WITHIN REACH. BED LOW AND LOCKED. VSS. O2 >90% ON 2L. NO ACUTE CONCERNS AT THIS TIME. THIS RN WILL CONTINUE TO CLOSELY MONITOR.
--- NOTE | 2022-01-28 03:10 | NUR ---
ETL ANALYST DEVELOPER SUMMARY THE PATIENT IS AN 81 YEAR-OLD FEMALE WITH A DIAGNOSIS OF RSV. VSS. PATIENT DONNING 2L O2 NC. O2 >90%. TELE REVEALS A-FIB, HR 106. A&OX4. PATIENT EFFECTIVELY COMMUNICATES NEEDS. 1-PERSON ASSIST. PATIENT HAS BEEN RESTING IN BED THIS SHIFT. CALL LIGHT WITHIN REACH. BED LOW AND LOCKED. NO ACUTE CONCERNS AT THIS TIME. THIS RN WILL CONTINUE TO CLOSELY MONITOR. PATIENT'S DAUGHTER STATES PATIENT NEEDS TO BE TAKING CHOLESTYRAMINE, WHICH IS PART OF HER NORMAL HOME-MEDICATION REGIMEN. THIS RN WILL REPORT THIS TO DAY SHIFT RN TO FUTHER DISCUSS WITH PATIENT'S PRIMARY CARE PHYSICIAN.
[2022-01-28 06:43] LABS: BASOPHILS ABSOLUTE AUTO 0.05 K/mm3 (0.00-0.23); BASOPHILS PERCENT AUTO 1 % (0-2); EOSINOPHILS ABSOLUTE AUTO 0.07 K/mm3 (0.00-0.68); EOSINOPHILS PERCENT AUTO 1 % (0-6); Hematocrit 39.8 % (33.0-51.0); Hemoglobin 12.9 g/dL (11.5-16.0); IMMATURE GRAN ABSOLUTE AUTO 0.11 K/mm3 (0.00-0.10); IMMATURE GRAN PERCENT AUTO 1 % (0-1); LYMPHOCYTES ABSOLUTE AUTO 3.16 K/mm3 (0.84-5.20); LYMPHOCYTES PERCENT AUTO 31 % (21-46); MONOCYTES ABSOLUTE AUTO 1.13 K/mm3 (0.16-1.47); MONOCYTES PERCENT AUTO 11 % (4-13); Mean Corpuscular HGB 28.5 pg (26.0-34.0); Mean Corpuscular HGB Conc 32.4 g/dL (31.5-36.5); Mean Corpuscular Volume 88 fL (80-100); Mean Platelet Volume 9.5 fL (9.1-12.4); NEUTROPHILS ABSOLUTE AUTO 5.56 K/mm3 (1.96-9.15); NEUTROPHILS PERCENT AUTO 55 % (41-73); Platelet Count 249 K/mm3 (150-400); RDW Coefficient Variation 16.3 % (11.7-14.2); RDW Standard Deviation 52.5 fL (35.1-46.3); Red Blood Cell Count 4.52 M/mm3 (3.80-5.20); White Blood Cell Count 10.08 K/mm3 (4.00-11.30)
[2022-01-28 07:09] LABS: Albumin, Blood 3.2 g/dL (3.4-5.0); Albumin/Globulin Ratio 0.8 (0.8-1.8); Bilirubin, Total 0.4 mg/dL (0.1-1.0); Bun/Creatinine Ratio 30.5 (12.0-20.0); Calcium, Blood 9.3 mg/dL (8.5-10.1); Creatinine, Blood 0.56 mg/dL (0.40-1.00); Globulin, Blood 3.9 g/dL (2.2-4.0); Potassium, Blood 3.8 mmol/L (3.5-5.5); Total Protein, Blood 7.1 g/dL (6.4-8.2)
--- NOTE | 2022-01-28 18:52 | NUR ---
SHIFT SUMMARY PT RESTING QUIETLY AT START OF SHIFT. WOKE EASILY FOR CARE. UP TO BSC TO VOID BEFORE BREAKFAST AND THEN TO CHAIR AT BS FOR MEALS. PT MOVES SLOWLY, BUT DID REQUEST TO GET UP TO CHAIR. PT IN DROPLET ISO FOR RSV. DR JEWELL IN TO SEE PT THIS AM. PT REQUESTING CHOLESTERMINE FOR IBS; NEW ORDERS PLACED. PT UP IN RM WALKING WITH P/T; MOVING VERY SLOWLY, BUT MOVING ON HER OWN USING FWW AND SBA. HOME O2 EVAL DONE FOR POSSIBLE D/C TOMORROW. NO C/O PAIN. DENIED FURTHER NEEDS. DAUGHTER IN RM FOR SEVERAL HOURS TODAY. GONE HOME FOR NOW. REPORT TO BE GIVEN TO [place] RN.
--- NOTE | 2022-01-29 05:22 | NUR ---
HUNTER WOULD SLEEP QUIETLY ON HER SIDE, THEN ROLL ONTO HER BACK AND HAVE RACKING BRONCHOSPASMS FOR 15-20 MINUTES. SHE IS SPITTING OUT COPIOUS AMOUNTS OF THIN SPUTUM, LUNG SOUNDS ARE COARSE THROUGHOUT. HUNTER IS HAVING TROUBLE WORRYING ABOUT GETTING HOME AGAIN WITH HER CURRENT STATE OF WEEKNESS. NO COMPLAINTS OF PAIN OR DISCOMFORT DESPITE HER ONGOING COUGH
--- NOTE | 2022-01-29 08:00 | NUR ---
pt sitting up in chair for breakfast, she states she's having all over pain, and wants tylenol, a/ox3, cooperative with care, follows commands well, lungs are dim with some courseness t/o, resp even and unlabored at this time, currently on 3 liters 02 via n/c, occ cough, hrirr, tele in place running afib per monitor, see strip, no edema noted, ppp+1, cap refill <3sec, vs stable, afebrile, iv site to rfa is clear and patent, btx4, abd flat soft nontender, voids without diff, skin has some pink to bottom, bruising, otherwise c/w/d, merissa gong, call light in reach.
[2022-01-29] MEDS ORDERED: Q-Tussin100 MG/5 M PO (14:57)
[2022-01-29] MEDS ORDERED: PRED20 PO (14:57)
--- NOTE | 2022-01-29 17:25 | NUR ---
Pt has been discharged to home, daughter here to help her with discharge, went over instructions with her, she verbalized understanding, iv removed intact, waiting on a cab to transport home. pt had a bed bath, call light in reach.
--- NOTE | 2022-01-29 17:57 | NUR ---
Pt has been discharged to home, left via wheelchair with son taking her to truck with all her belongings. went over instructions with daughter.
== END 2022-01-29 18:00 | disposition home health service (06) | DRG 871 ==
LOC: ER 22:01 → ERHOLD 01-25 02:25 → MEDS 01-25 20:07
PROVIDERS: Emergency Medicine; Internal Medicine; ADMIT Internal Medicine
DX: A41.89 Other specified sepsis (principal); J96.01 Acute respiratory failure with hypoxia; E87.1 Hypo-osmolality and hyponatremia; J45.901 Unspecified asthma with (acute) exacerbation; I50.32 Chronic diastolic (congestive) heart failure; I25.10 Atherosclerotic heart disease of native coronary artery without angina pectoris; F03.90 Unspecified dementia, unspecified severity, without behavioral disturbance, psychotic disturbance, mood disturbance, and anxiety; I11.0 Hypertensive heart disease with heart failure; Z66 Do not resuscitate; E11.9 Type 2 diabetes mellitus without complications; F41.8 Other specified anxiety disorders; I48.0 Paroxysmal atrial fibrillation; B97.4 Respiratory syncytial virus as the cause of diseases classified elsewhere; R32 Unspecified urinary incontinence; K21.9 Gastro-esophageal reflux disease without esophagitis; M51.9 Unspecified thoracic, thoracolumbar and lumbosacral intervertebral disc disorder; K58.9 Irritable bowel syndrome, unspecified; E78.5 Hyperlipidemia, unspecified; Z20.822 Contact with and (suspected) exposure to COVID-19; Z88.5 Allergy status to narcotic agent; Z88.1 Allergy status to other antibiotic agents; Z79.899 Other long term (current) drug therapy; Z79.82 Long term (current) use of aspirin; Z79.01 Long term (current) use of anticoagulants; Z79.51 Long term (current) use of inhaled steroids; I25.2 Old myocardial infarction; Z90.49 Acquired absence of other specified parts of digestive tract; Z95.5 Presence of coronary angioplasty implant and graft; Z87.820 Personal history of traumatic brain injury; Z90.721 Acquired absence of ovaries, unilateral; Z98.890 Other specified postprocedural states
CPT/HCPCS: 0241U; 36415; 71045; 80053; 82947; 83735; 83880; 84484; 85025; 93005; 93010; 94640; 94664; 94760; 94761; 96365; 96366; 96368; 96372-59; 96375; 96376; 97110; 97116; 97162; 97165; 97535; 99285-25; A9270; J0456; J1650; J1815; J2930; J3475; J7030; J7050; J7512

== ENCOUNTER → 2023-02-26 | Outpatient (CLI) | payer OTHER ==
[~2023-02-26] MED LIST changes: +PRED20 PO; +Q-Tussin100 MG/5 M PO
[2023-02-26 17:52] LABS: BASOPHILS ABSOLUTE AUTO 0.06 K/mm3 (0.00-0.23); BASOPHILS PERCENT AUTO 1 % (0-2); EOSINOPHILS ABSOLUTE AUTO 0.11 K/mm3 (0.00-0.68); EOSINOPHILS PERCENT AUTO 1 % (0-6); Hematocrit 42.8 % (33.0-51.0); Hemoglobin 14.2 g/dL (11.5-16.0); IMMATURE GRAN ABSOLUTE AUTO 0.04 K/mm3 (0.00-0.10); IMMATURE GRAN PERCENT AUTO 1 % (0-1); LYMPHOCYTES ABSOLUTE AUTO 2.04 K/mm3 (0.84-5.20); LYMPHOCYTES PERCENT AUTO 24 % (21-46); MONOCYTES ABSOLUTE AUTO 0.75 K/mm3 (0.16-1.47); MONOCYTES PERCENT AUTO 9 % (4-13); Mean Corpuscular HGB 31.7 pg (26.0-34.0); Mean Corpuscular HGB Conc 33.2 g/dL (31.5-36.5); Mean Corpuscular Volume 96 fL (80-100); Mean Platelet Volume 9.4 fL (9.1-12.4); NEUTROPHILS ABSOLUTE AUTO 5.41 K/mm3 (1.96-9.15); NEUTROPHILS PERCENT AUTO 64 % (41-73); Platelet Count 241 K/mm3 (150-400); RDW Coefficient Variation 12.7 % (11.7-14.2); RDW Standard Deviation 44.4 fL (35.1-46.3); Red Blood Cell Count 4.48 M/mm3 (3.80-5.20); White Blood Cell Count 8.41 K/mm3 (4.00-11.30)
[2023-02-26 18:16] LABS: Bun/Creatinine Ratio 20.9 (12.0-20.0); Calcium, Blood 9.4 mg/dL (8.5-10.1); Creatinine, Blood 0.91 mg/dL (0.40-1.00); Potassium, Blood 3.5 mmol/L (3.5-5.5)
== END ==
LOC: LAB 17:46 → LAB SHORT 17:46
PROVIDERS: Physician Assistant
DX: R07.9 Chest pain, unspecified (principal)
CPT/HCPCS: 80048; 84484; 85025

== ENCOUNTER → 2023-08-09 | Outpatient (CLI) | payer OTHER ==
[2023-08-09 18:15] LABS: BASOPHILS ABSOLUTE AUTO 0.06 K/mm3 (0.00-0.23); BASOPHILS PERCENT AUTO 1 % (0-2); EOSINOPHILS ABSOLUTE AUTO 0.17 K/mm3 (0.00-0.68); EOSINOPHILS PERCENT AUTO 3 % (0-6); Hematocrit 40.5 % (33.0-51.0); Hemoglobin 13.2 g/dL (11.5-16.0); IMMATURE GRAN ABSOLUTE AUTO 0.03 K/mm3 (0.00-0.10); IMMATURE GRAN PERCENT AUTO 1 % (0-1); LYMPHOCYTES ABSOLUTE AUTO 2.31 K/mm3 (0.84-5.20); LYMPHOCYTES PERCENT AUTO 35 % (21-46); MONOCYTES ABSOLUTE AUTO 0.65 K/mm3 (0.16-1.47); MONOCYTES PERCENT AUTO 10 % (4-13); Mean Corpuscular HGB 31.7 pg (26.0-34.0); Mean Corpuscular HGB Conc 32.6 g/dL (31.5-36.5); Mean Corpuscular Volume 97 fL (80-100); Mean Platelet Volume 9.9 fL (9.1-12.4); NEUTROPHILS ABSOLUTE AUTO 3.42 K/mm3 (1.96-9.15); NEUTROPHILS PERCENT AUTO 51 % (41-73); Platelet Count 222 K/mm3 (150-400); RDW Standard Deviation 46.8 fL (35.1-46.3); Red Blood Cell Count 4.16 M/mm3 (3.80-5.20); White Blood Cell Count 6.64 K/mm3 (4.00-11.30)
[2023-08-09 18:21] LABS: Calcium, Blood 9.4 mg/dL (8.5-10.1); Creatinine, Blood 0.87 mg/dL (0.40-1.00); Potassium, Blood 4.3 mmol/L (3.5-5.5)
== END ==
LOC: LAB 17:32 → LAB SHORT 18:11
PROVIDERS: Physician Assistant Medical
DX: I48.91 Unspecified atrial fibrillation (principal)
CPT/HCPCS: 80048; 84484; 85025